=== PATIENT | male | born 1965 | race Caucasian/White ===

== ENCOUNTER 2019-06-22 14:48 | Outpatient (CLI) | payer OTHER, SELFPAY ==
[2019-06-22 15:36] LABS: Basophils Absolute Auto 0.1 K/mm3 (0.0-0.1); Basophils Percent Auto 0.8 % (0.2-1.2); Eosinophils Absolute Auto 0.3 K/mm3 (0-0.3); Eosinophils Percent Auto 3.6 % (0-4.4); Hematocrit 40.2 % (42.0-52.0); Immature Granulocyte Absolute 0.03 K/mm3 (0.00-0.031); Immature Granulocyte Percent A 0.4 % (0-0.5); Lymphocytes Absolute Auto 1.59 K/mm3 (0.9-3.2); Lymphocytes Percent Auto 21.8 % (18.3-44.2); Mean Corpuscular HGB Conc 34.8 g/dl (32-36); Mean Corpuscular Volume 97.6 fl (80-100); Mean Platelet Volume 10.2 fl (7.4-10.4); Monocytes Absolute Auto 0.7 K/mm3 (0.1-0.6); Monocytes Percent Auto 9.3 % (2.6-8.5); Neutrophils Absolute Auto 4.7 K/mm3 (1.3-6.7); Neutrophils Percent Auto 64.1 % (45.5-73.1); Platelet Count Result 239 k/mm3 (150-375); Red Blood Count 4.12 M/mm3 (4.6-6.20); Red Cell Distribution Width 13.2 % (11.5-14.5); White Blood Count 7.3 K/mm3 (4.5-10.0)
[2019-06-22 15:51] LABS: Add Urine Microscopic? YES; Appearance Urine Clear (Clear); Bilirubin Urine Negative (Negative); Blood Urine Negative (Negative); Color Urine Straw (Yellow); Glucose Urine UA Negative (Negative); Ketones Urine Negative (Negative); Leukocyte Esterase Ur Negative LEU/UL (NEGATIVE); Nitrate Urine Negative (Negative); Protein Urine 1+ mg/dL (Negative); RBC Urine 0-2 /hpf (0-2); Squamous Epithelial Cell Urine Rare /hpf (Few); Urobilinogen Urine Negative mg/dL (<2.0); WBC Urine 0-3 /hpf (0-3)
[2019-06-22 15:59] LABS: Alanine Aminotransferase 76 U/L (4-50); Albumin Level 4.9 g/dL (3.5-5.1); Alkaline Phosphatase 89 U/L (38-126); Aspartate Amino Transferase 152 U/L (17-59); Bilirubin,Total 0.7 mg/dL (0.2-1.3); Blood Urea Nitrogen 7 mg/dL (9-20); CRP 4.4 mg/dL (<1.0); Calcium 9.7 mg/dL (8.4-10.2); Carbon Dioxide 25 mmol/L (22-30); Chloride 102 mmol/L (98-107); Cholesterol 122 mg/dL (0-200); Estimated Glomerular Filt Rate > 60; Glucose 118 mg/dL (75-110); HDL Direct 57 mg/dL; Potassium 3.9 mmol/L (3.4-5.0); Sodium 139 mmol/L (137-145); Triglycerides 75 mg/dL (<150)
[2019-06-22 16:08] LABS: LDL Cholesterol Direct 46 mg/dL
[2019-06-22 16:19] LABS: Hemoglobin A1C 5.7 % (<5.7)
[2019-06-22 16:28] LABS: Thyroid Stimulating Hormone 0.948 uIU/mL (0.465-4.680)
[2019-06-26 04:39] LABS: Homocysteine 13.6 umol/L (<11.4)
[2019-06-26 11:58] LABS: Testosterone Total 463 ng/dL (250-1100)
== END 2019-06-22 14:49 | disposition home or self-care (01) ==
PROVIDERS: PCP Internal Medicine; Visit Provider Internal Medicine
DX: E78.2 Mixed hyperlipidemia (principal); I10 Essential (primary) hypertension; E11.9 Type 2 diabetes mellitus without complications; E34.9 Endocrine disorder, unspecified; Z79.899 Other long term (current) drug therapy
CPT/HCPCS: 36415; 80053; 80061; 81001; 83036; 83090; 84403; 84443; 85025; 86140

== ENCOUNTER 2019-07-27 10:46 | Outpatient (CLI) | payer OTHER, SELFPAY ==
--- NOTE | ~2019-07-27 | US_ITS ---
EXAMINATION: US right upper quadrant DATE: 07/27/2019 11:40 INDICATION: Hepatic steatosis. TECHNIQUE: Multiple grayscale and Doppler ultrasound images of the abdomen were obtained. COMPARISON: Abdomen ultrasound 02/17/2018 FINDINGS: The visualized portions of the head and body of the pancreas are normal. There is diffuse h epatic steatosis. No liver surface nodularity. There is normal flow in main portal vein. The gallblad roberto is normal in size. No gallstones or gallbladder wall thickening. There was no sonographic Groves sign. The common duct is normal and measures 3 mm. IMPRESSION: 1. Diffuse hepatic steatosis. Reviewed, dictated and finalized at location A.
--- NOTE | ~2019-07-27 | XR_ITS ---
EXAMINATION: XR knee RT 2V DATE: 07/27/2019 11:21 INDICATION: Primary osteoarthritis of right knee. TECHNIQUE: 2 views of right knee were obtained. COMPARISON: Right knee radiographs 03/30/2016 FINDINGS: There is varus angulation at the knee. No fracture. There is severe osteoarthritis of media l and patellofemoral compartments and mild osteoarthritis of lateral compartment. There is a small kn ee joint effusion. IMPRESSION: 1. Severe right knee osteoarthritis, worsened from 03/30/2016. 2. Small right knee joint effusion. Reviewed, dictated and finalized at location A.
--- NOTE | ~2019-07-27 | XR_ITS ---
EXAMINATION: XR knee LT 2V DATE: 07/27/2019 11:21 INDICATION: Left knee primary osteoarthritis. TECHNIQUE: 2 views of left knee were obtained. COMPARISON: Left knee radiographs 12/01/2015 FINDINGS: There is varus angulation at the knee. No fracture. There is severe osteoarthritis of the m edial and patellofemoral compartments and moderate osteoarthritis of lateral compartment. There is a moderate-sized knee joint effusion. IMPRESSION: 1. Severe left knee osteoarthritis. 2. Moderate-sized left knee joint effusion. Reviewed, dictated and finalized at location A.
[2019-07-27 12:08] LABS: Hemoglobin A1C 5.9 % (<5.7)
[2019-07-27 12:14] LABS: Alanine Aminotransferase 53 U/L (4-50); Albumin Level 4.7 g/dL (3.5-5.1); Alkaline Phosphatase 93 U/L (38-126); Aspartate Amino Transferase 63 U/L (17-59); Bilirubin,Total 0.3 mg/dL (0.2-1.3)
== END 2019-07-27 10:47 | disposition home or self-care (01) ==
PROVIDERS: PCP Internal Medicine; Visit Provider Internal Medicine
DX: R79.89 Other specified abnormal findings of blood chemistry (principal); E11.9 Type 2 diabetes mellitus without complications; M17.0 Bilateral primary osteoarthritis of knee; K76.0 Fatty (change of) liver, not elsewhere classified; M25.461 Effusion, right knee; M25.462 Effusion, left knee
CPT/HCPCS: 36415; 73560; 76705; 80076; 83036

== ENCOUNTER 2019-10-19 10:54 | Outpatient (CLI) | payer OTHER, SELFPAY ==
[2019-10-19 11:34] LABS: Add Urine Microscopic? YES; Appearance Urine Clear (Clear); Bilirubin Urine Negative (Negative); Blood Urine Negative (Negative); Color Urine Yellow (Yellow); Glucose Urine UA Negative (Negative); Ketones Urine Negative (Negative); Leukocyte Esterase Ur Negative LEU/UL (NEGATIVE); Mucus Urine Rare /lpf; Nitrate Urine Negative (Negative); Protein Urine Negative (Negative); Specific Grav Ur 1.012 (1.001-1.035); Urobilinogen Urine Negative mg/dL (<2.0); WBC Urine 0-3 /hpf (0-3)
[2019-10-19 11:46] LABS: Alanine Aminotransferase 48 U/L (4-50); Albumin Level 4.7 g/dL (3.5-5.1); Alkaline Phosphatase 72 U/L (38-126); Anion Gap 11 mmol/L (8-16); Aspartate Amino Transferase 56 U/L (17-59); Bilirubin,Total 0.7 mg/dL (0.2-1.3); Blood Urea Nitrogen 8 mg/dL (9-20); Calcium 9.6 mg/dL (8.4-10.2); Carbon Dioxide 26 mmol/L (22-30); Chloride 104 mmol/L (98-107); Cholesterol 109 mg/dL (0-200); Estimated Glomerular Filt Rate > 60; Glucose 102 mg/dL (75-110); HDL Direct 45 mg/dL; Potassium 3.9 mmol/L (3.4-5.0); Sodium 141 mmol/L (137-145); Triglycerides 74 mg/dL (<150)
[2019-10-19 11:56] LABS: LDL Cholesterol Direct 49 mg/dL
[2019-10-19 12:09] LABS: Creatinine Urine 105.5 mg/dL; MALB Creatinine Ratio 19.1 mg/g (0-30); Microalbumin Urine Random 20.1 mg/L (0-16.7)
[2019-10-19 12:16] LABS: Prostate Specific Antigen 0.7 ng/mL (< OR = 4.0); Thyroid Stimulating Hormone 0.646 uIU/mL (0.465-4.680)
[2019-10-25 06:45] LABS: GGT 174 U/L (3-85)
== END 2019-10-19 10:55 | disposition home or self-care (01) ==
PROVIDERS: PCP Internal Medicine; Visit Provider Internal Medicine
DX: E78.2 Mixed hyperlipidemia (principal); Z79.899 Other long term (current) drug therapy; K76.0 Fatty (change of) liver, not elsewhere classified; R79.89 Other specified abnormal findings of blood chemistry; E11.9 Type 2 diabetes mellitus without complications; I10 Essential (primary) hypertension; Z12.5 Encounter for screening for malignant neoplasm of prostate
CPT/HCPCS: 36415; 80053; 80061; 81001; 82043; 82977; 84153; 84443; G0103

== ENCOUNTER 2020-01-21 13:54 | Outpatient (CLI) | payer OTHER, SELFPAY ==
[2020-01-21 15:09] LABS: Alanine Aminotransferase 80 U/L (4-50); Albumin Level 4.7 g/dL (3.5-5.1); Alkaline Phosphatase 79 U/L (38-126); Anion Gap 13 mmol/L (8-16); Aspartate Amino Transferase 98 U/L (17-59); Bilirubin,Total 0.5 mg/dL (0.2-1.3); Blood Urea Nitrogen 9 mg/dL (9-20); Calcium 9.7 mg/dL (8.4-10.2); Carbon Dioxide 27 mmol/L (22-30); Chloride 101 mmol/L (98-107); Cholesterol 150 mg/dL (0-200); Estimated Glomerular Filt Rate > 60; Glucose 114 mg/dL (75-110); HDL Direct 75 mg/dL; Potassium 4.1 mmol/L (3.4-5.0); Sodium 141 mmol/L (137-145); Triglycerides 73 mg/dL (<150)
[2020-01-21 15:20] LABS: LDL Cholesterol Direct 59 mg/dL
[2020-01-21 17:01] LABS: Hemoglobin A1C 5.3 % (<5.7)
[2020-01-24 06:08] LABS: Vitamin D 1,25 (OH)2 Total 38 pg/mL (18-72); Vitamin D2 1,25 (OH)2 <8 pg/mL; Vitamin D3 1,25 (OH)2 38 pg/mL
[2020-01-24 09:38] LABS: Testosterone Total 334 ng/dL (250-1100)
== END 2020-01-21 13:55 | disposition home or self-care (01) ==
LOC: ANHLAB 13:58
PROVIDERS: PCP Internal Medicine; Visit Provider Internal Medicine
DX: E11.9 Type 2 diabetes mellitus without complications (principal); E29.1 Testicular hypofunction; E55.9 Vitamin D deficiency, unspecified; E78.2 Mixed hyperlipidemia; I10 Essential (primary) hypertension
CPT/HCPCS: 36415; 80053; 80061; 82652; 83036; 84403

== ENCOUNTER 2020-02-04 08:04 | Outpatient (CLI) | payer OTHER, SELFPAY ==
--- NOTE | ~2020-02-04 | US_ITS ---
EXAMINATION: US arterial duplex LE BI EXAM DATE: 02/04/2020 09:47 INDICATION: Abnormal JESSICA screen. Unable to compress right lower extremity. TECHNIQUE: Multiple grayscale and Doppler images of the lower extremity arteries were obtained (by a technologist who performed the scan) and subsequently reviewed. There is no prior study for comparis on. FINDINGS: Velocities below are reported in cm/second. Right common femoral artery 120, superficial femoral artery 125, profunda 135, popliteals 94, posteri or tibial 71, dorsalis pedis 48. Only minimal scattered arterial sclerotic disease is identified. Nor mal triphasic waveforms. Left common femoral artery 231, superficial femoral artery 166, profunda 103, popliteal 113, posterio r tibial 102, dorsalis pedis 120. Minimal scattered arteriosclerotic disease with normal triphasic Do ppler waveforms. IMPRESSION: Minimal scattered bilateral lower extremity arterial sclerotic disease with normal tripha sic waveforms. Reviewed, dictated and finalized at location B. 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
== END 2020-02-04 08:05 | disposition home or self-care (01) ==
LOC: ANHIMG 08:09
PROVIDERS: PCP Internal Medicine; Visit Provider Internal Medicine
DX: I25.10 Atherosclerotic heart disease of native coronary artery without angina pectoris (principal)
CPT/HCPCS: 93925

== ENCOUNTER 2020-06-20 13:15 | Outpatient (CLI) | payer OTHER, SELFPAY ==
[2020-06-20 13:52] LABS: Basophils Absolute Auto 0.1 K/mm3 (0.0-0.1); Basophils Percent Auto 0.5 % (0.2-1.2); Eosinophils Absolute Auto 0.2 K/mm3 (0-0.3); Hemoglobin 13.3 g/dL (14.0-18.0); Immature Granulocyte Absolute 0.03 K/mm3 (0.00-0.031); Immature Granulocyte Percent A 0.3 % (0-0.5); Lymphocytes Absolute Auto 1.78 K/mm3 (0.9-3.2); Lymphocytes Percent Auto 18.4 % (18.3-44.2); Mean Corpuscular HGB Conc 34.1 g/dl (32-36); Mean Corpuscular Hemoglobin 32.7 pg (26-34); Mean Corpuscular Volume 95.8 fl (80-100); Mean Platelet Volume 10.4 fl (7.4-10.4); Monocytes Absolute Auto 0.6 K/mm3 (0.1-0.6); Monocytes Percent Auto 6.4 % (2.6-8.5); Neutrophils Percent Auto 72.4 % (45.5-73.1); Platelet Count Result 177 k/mm3 (150-375); Red Blood Count 4.07 M/mm3 (4.6-6.20); Red Cell Distribution Width 13.9 % (11.5-14.5); White Blood Count 9.7 K/mm3 (4.5-10.0)
[2020-06-20 14:04] LABS: Alanine Aminotransferase 30 U/L (4-50); Albumin Level 4.7 g/dL (3.5-5.1); Alkaline Phosphatase 69 U/L (38-126); Aspartate Amino Transferase 41 U/L (17-59); Bilirubin,Total 0.6 mg/dL (0.2-1.3); Cholesterol 112 mg/dL (0-200); HDL Direct 58 mg/dL; Triglycerides 78 mg/dL (<150)
[2020-06-20 14:16] LABS: LDL Cholesterol Direct 44 mg/dL
[2020-06-20 14:34] LABS: Thyroid Stimulating Hormone 0.782 uIU/mL (0.465-4.680)
[2020-06-20 14:37] LABS: Hemoglobin A1C 5.6 % (<5.7)
[2020-06-20 16:00] LABS: Free T4 Free Thyroxine 0.82 ng/mL (0.78-2.19)
[2020-06-20 18:08] LABS: Microalbumin Urine Random < 6.0 mg/L (0-16.7)
[2020-06-25 07:28] LABS: GGT 132 U/L (3-85)
== END 2020-06-20 13:16 | disposition home or self-care (01) ==
LOC: ANHLAB 13:17
PROVIDERS: PCP Internal Medicine; Visit Provider Internal Medicine
DX: K76.0 Fatty (change of) liver, not elsewhere classified (principal); E11.9 Type 2 diabetes mellitus without complications; E78.2 Mixed hyperlipidemia; I10 Essential (primary) hypertension; Z79.899 Other long term (current) drug therapy
CPT/HCPCS: 36415; 80061; 80076; 82043; 82977; 83036; 84439; 84443; 85025

== ENCOUNTER 2020-10-31 12:53 | Outpatient (CLI) | payer OTHER, SELFPAY ==
[2020-10-31 13:28] LABS: Basophils Percent Auto 0.6 % (0.2-1.2); Eosinophils Absolute Auto 0.2 K/mm3 (0-0.3); Eosinophils Percent Auto 3.4 % (0-4.4); Hematocrit 39.4 % (42.0-52.0); Hemoglobin 13.4 g/dL (14.0-18.0); Immature Granulocyte Absolute 0.02 K/mm3 (0.00-0.031); Immature Granulocyte Percent A 0.3 % (0-0.5); Lymphocytes Absolute Auto 2.39 K/mm3 (0.9-3.2); Lymphocytes Percent Auto 37.2 % (18.3-44.2); Mean Corpuscular Hemoglobin 32.8 pg (26-34); Mean Corpuscular Volume 96.6 fl (80-100); Mean Platelet Volume 10.1 fl (7.4-10.4); Monocytes Absolute Auto 0.7 K/mm3 (0.1-0.6); Monocytes Percent Auto 10.1 % (2.6-8.5); Neutrophils Absolute Auto 3.1 K/mm3 (1.3-6.7); Neutrophils Percent Auto 48.4 % (45.5-73.1); Platelet Count Result 174 k/mm3 (150-375); Red Blood Count 4.08 M/mm3 (4.6-6.20); Red Cell Distribution Width 14.2 % (11.5-14.5); White Blood Count 6.4 K/mm3 (4.5-10.0)
[2020-10-31 13:47] LABS: Alanine Aminotransferase 49 U/L (4-50); Albumin Level 4.9 g/dL (3.5-5.1); Alkaline Phosphatase 81 U/L (38-126); Anion Gap 10 mmol/L (8-16); Aspartate Amino Transferase 61 U/L (17-59); Bilirubin,Total 0.5 mg/dL (0.2-1.3); Blood Urea Nitrogen 11 mg/dL (9-20); Calcium 9.4 mg/dL (8.4-10.2); Carbon Dioxide 26 mmol/L (22-30); Chloride 103 mmol/L (98-107); Estimated Glomerular Filt Rate > 60; Glucose 103 mg/dL (65-110); Potassium 3.7 mmol/L (3.4-5.0); Sodium 139 mmol/L (137-145); Uric Acid 4.6 mg/dL (3.5-8.5)
[2020-10-31 14:09] LABS: Free T4 Free Thyroxine 0.86 ng/mL (0.78-2.19)
[2020-10-31 14:17] LABS: Prostate Specific Antigen 0.6 ng/mL (< OR = 4.0)
[2020-11-03 13:21] LABS: Cholesterol 115 mg/dL (0-200)
[2020-11-03 13:24] LABS: HDL Direct 58 mg/dL; Triglycerides 102 mg/dL (<150)
[2020-11-03 13:27] LABS: LDL Cholesterol Direct 48 mg/dL
[2020-11-04 12:15] LABS: Testosterone Total 238 ng/dL (250-1100)
[2020-11-05 11:32] LABS: Vitamin D 1,25 (OH)2 Total 30 pg/mL (18-72); Vitamin D2 1,25 (OH)2 <8 pg/mL; Vitamin D3 1,25 (OH)2 30 pg/mL
[2020-11-05 21:22] LABS: Homocysteine 13.1 umol/L (<11.4)
== END 2020-10-31 12:54 | disposition home or self-care (01) ==
PROVIDERS: PCP Internal Medicine; Visit Provider Internal Medicine
DX: E55.9 Vitamin D deficiency, unspecified (principal); I10 Essential (primary) hypertension; Z79.899 Other long term (current) drug therapy; R79.89 Other specified abnormal findings of blood chemistry; E29.1 Testicular hypofunction; M10.9 Gout, unspecified; Z12.5 Encounter for screening for malignant neoplasm of prostate
CPT/HCPCS: 36415; 80053; 80061; 82652; 83090; 84153; 84403; 84439; 84443; 84550; 85025; G0103

== ENCOUNTER 2021-03-06 14:02 | Outpatient (CLI) | payer OTHER, SELFPAY ==
[2021-03-06 14:47] LABS: Hemoglobin A1C 5.5 % (<5.7)
[2021-03-06 14:49] LABS: Alanine Aminotransferase 70 U/L (4-50); Alkaline Phosphatase 74 U/L (38-126); Anion Gap 7 mmol/L (8-16); Aspartate Amino Transferase 81 U/L (17-59); Bilirubin,Total 0.6 mg/dL (0.2-1.3); Blood Urea Nitrogen 9 mg/dL (9-20); Calcium 9.9 mg/dL (8.4-10.2); Carbon Dioxide 28 mmol/L (22-30); Chloride 107 mmol/L (98-107); Cholesterol 123 mg/dL (0-200); Estimated Glomerular Filt Rate > 60; Glucose 107 mg/dL (65-110); HDL Direct 57 mg/dL; Sodium 142 mmol/L (137-145); Triglycerides 82 mg/dL (<150); Uric Acid 5.1 mg/dL (3.5-8.5)
[2021-03-06 15:00] LABS: LDL Cholesterol Direct 47 mg/dL
[2021-03-06 15:19] LABS: Thyroid Stimulating Hormone 0.536 uIU/mL (0.465-4.680)
[2021-03-06 16:57] LABS: Free T4 Free Thyroxine 0.74 ng/mL (0.78-2.19); Vitamin D 25 Hydroxy 35.3 ng/mL
[2021-03-11 10:42] LABS: Testosterone Total 402 ng/dL (250-1100)
== END 2021-03-06 14:03 | disposition home or self-care (01) ==
LOC: ANHLAB 14:05
PROVIDERS: PCP Internal Medicine; Visit Provider Internal Medicine
DX: E29.1 Testicular hypofunction (principal); M10.9 Gout, unspecified; Z51.81 Encounter for therapeutic drug level monitoring; Z79.899 Other long term (current) drug therapy; I10 Essential (primary) hypertension; E55.9 Vitamin D deficiency, unspecified
CPT/HCPCS: 36415; 80053; 80061; 82306; 83036; 84403; 84439; 84443; 84550

== ENCOUNTER 2021-04-24 12:40 | Outpatient (CLI) | payer OTHER, SELFPAY ==
[2021-04-28 04:23] LABS: Thyroglobulin 11.8 ng/mL (2.8-40.9); Thyroglobulin Antibodies <1 IU/mL (<=1); Thyroid Peroxidase Antibodies <1 IU/mL (<9)
[2021-04-28 14:29] LABS: Triiodothyronine T3 Free 3.5 pg/mL (2.3-4.2)
== END 2021-04-24 12:41 | disposition home or self-care (01) ==
LOC: ANHLAB 12:43
PROVIDERS: PCP Internal Medicine; Visit Provider Internal Medicine
DX: R79.89 Other specified abnormal findings of blood chemistry (principal)
CPT/HCPCS: 36415; 84432; 84481; 86376; 86800

== ENCOUNTER 2021-09-11 14:07 | Outpatient (CLI) | payer OTHER, SELFPAY ==
[2021-09-11 14:32] LABS: Basophils Absolute Auto 0.1 K/mm3 (0.0-0.1); Basophils Percent Auto 0.9 % (0.2-1.2); Eosinophils Absolute Auto 0.3 K/mm3 (0-0.3); Eosinophils Percent Auto 3.8 % (0-4.4); Hematocrit 44.9 % (42.0-52.0); Hemoglobin 14.6 g/dL (14.0-18.0); Immature Granulocyte Absolute 0.02 K/mm3 (0.00-0.031); Immature Granulocyte Percent A 0.3 % (0-0.5); Lymphocytes Absolute Auto 2.41 K/mm3 (0.9-3.2); Lymphocytes Percent Auto 30.2 % (18.3-44.2); Mean Corpuscular HGB Conc 32.5 g/dl (32-36); Mean Corpuscular Hemoglobin 32.4 pg (26-34); Mean Corpuscular Volume 99.6 fl (80-100); Mean Platelet Volume 10.3 fl (7.4-10.4); Monocytes Absolute Auto 0.6 K/mm3 (0.1-0.6); Monocytes Percent Auto 7.3 % (2.6-8.5); Neutrophils Absolute Auto 4.6 K/mm3 (1.3-6.7); Neutrophils Percent Auto 57.5 % (45.5-73.1); Platelet Count Result 243 k/mm3 (150-375); Red Blood Count 4.51 M/mm3 (4.6-6.20); Red Cell Distribution Width 14.6 % (11.5-14.5)
[2021-09-11 14:47] LABS: Alanine Aminotransferase 85 U/L (6-50); Albumin Level 4.7 g/dL (3.5-5.1); Alkaline Phosphatase 75 U/L (38-126); Anion Gap 12 mmol/L (8-16); Aspartate Amino Transferase 92 U/L (17-59); Bilirubin,Total 0.6 mg/dL (0.2-1.3); Blood Urea Nitrogen 8 mg/dL (9-20); Calcium 9.6 mg/dL (8.4-10.2); Carbon Dioxide 25 mmol/L (22-30); Chloride 103 mmol/L (98-107); Cholesterol 103 mg/dL (0-200); Estimated Glomerular Filt Rate > 60; Glucose 94 mg/dL (65-110); HDL Direct 51 mg/dL; Potassium 3.9 mmol/L (3.4-5.0); Sodium 140 mmol/L (137-145); Triglycerides 67 mg/dL (<150)
[2021-09-11 14:58] LABS: LDL Cholesterol Direct < 30 mg/dL
[2021-09-11 15:07] LABS: Hemoglobin A1C 5.3 % (<5.7)
[2021-09-11 15:17] LABS: Prostate Specific Antigen 0.8 ng/mL (< OR = 4.0); Thyroid Stimulating Hormone 0.328 uIU/mL (0.465-4.680)
[2021-09-12 00:08] LABS: Free T4 Free Thyroxine 0.94 ng/mL (0.78-2.19); Vitamin D 25 Hydroxy 57.5 ng/mL
[2021-09-14 20:14] LABS: GGT 143 U/L (3-85)
[2021-09-16 12:17] LABS: Testosterone Total 335 ng/dL (250-1100)
== END 2021-09-11 14:08 | disposition home or self-care (01) ==
LOC: ANHLAB 14:09
PROVIDERS: PCP Internal Medicine; Visit Provider Internal Medicine
DX: E11.9 Type 2 diabetes mellitus without complications (principal); R79.89 Other specified abnormal findings of blood chemistry; Z12.5 Encounter for screening for malignant neoplasm of prostate; I10 Essential (primary) hypertension; E29.1 Testicular hypofunction; E55.9 Vitamin D deficiency, unspecified; K76.0 Fatty (change of) liver, not elsewhere classified; R94.5 Abnormal results of liver function studies
CPT/HCPCS: 36415; 80053; 80061; 82306; 82977; 83036; 84153; 84403; 84439; 84443; 85025; G0103

== ENCOUNTER 2022-01-15 09:14 | Outpatient (CLI) | payer OTHER, SELFPAY ==
--- NOTE | ~2022-01-15 | US_ITS ---
US abdomen limited INDICATION: Abnormal liver function tests. PROCEDURE: Realtime right upper abdominal ultrasound. COMPARISON: No prior studies for comparison. FINDINGS: The pancreas is normal without focal mass or pancreatic ductal dilation. Liver echotexture is slightly increased, consistent with fatty infiltration. No discrete hepatic masses. There is nor mal directional flow in the portal vein. The gallbladder is normal without stones, gallbladder wall thickening or pericholecystic fluid. Comm on bile duct measures 4 mm. No sonographic Groves's sign. IMPRESSION: 1: Hepatic steatosis. Reviewed, dictated and finalized at location A. 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
[2022-01-15 11:03] LABS: Alanine Aminotransferase 50 U/L (6-50); Albumin Level 4.5 g/dL (3.5-5.1); Alkaline Phosphatase 75 U/L (38-126); Anion Gap 7 mmol/L (8-16); Aspartate Amino Transferase 64 U/L (17-59); Bilirubin,Total 0.3 mg/dL (0.2-1.3); Blood Urea Nitrogen 10 mg/dL (9-20); Calcium 9.1 mg/dL (8.4-10.2); Carbon Dioxide 27 mmol/L (22-30); Chloride 106 mmol/L (98-107); Cholesterol 104 mg/dL (0-200); Estimated Glomerular Filt Rate > 60; Glucose 104 mg/dL (65-110); HDL Direct 46 mg/dL; Potassium 3.9 mmol/L (3.4-5.0); Sodium 140 mmol/L (137-145); Triglycerides 70 mg/dL (<150)
[2022-01-15 11:14] LABS: LDL Cholesterol Direct 40 mg/dL
[2022-01-15 11:18] LABS: Appearance Urine Clear (Clear); Bilirubin Urine Negative (Negative); Blood Urine Negative (Negative); Color Urine Yellow (Yellow); Glucose Urine UA Negative (Negative); Ketones Urine Negative (Negative); Leukocyte Esterase Ur Negative LEU/UL (Negative); Nitrate Urine Negative (Negative); Protein Urine Negative (Negative); Specific Grav Ur 1.015 (1.001-1.035); Urobilinogen Urine 0.2 mg/dL (<2.0)
[2022-01-15 11:23] LABS: Hemoglobin A1C 5.7 % (<5.7)
[2022-01-15 11:42] LABS: Add Urine Microscopic? NO
[2022-01-20 15:18] LABS: Testosterone Total 356 ng/dL (250-1100)
== END 2022-01-15 09:15 | disposition home or self-care (01) ==
PROVIDERS: PCP Internal Medicine; Visit Provider Internal Medicine
DX: K76.0 Fatty (change of) liver, not elsewhere classified (principal); R94.5 Abnormal results of liver function studies; I10 Essential (primary) hypertension; E11.9 Type 2 diabetes mellitus without complications; E29.1 Testicular hypofunction; Z79.899 Other long term (current) drug therapy
CPT/HCPCS: 36415; 76705; 80053; 80061; 81003; 83036; 84403

== ENCOUNTER 2022-05-21 08:03 | Outpatient (CLI) | payer OTHER, SELFPAY ==
--- NOTE | ~2022-05-21 | US_ITS ---
US arterial ankle brachial ind INDICATION: Decreased pulses. His coloring. Loss of hair with thickening of the toenails. TECHNIQUE: Segmental pressures and plethysmographic and Doppler waveforms of the brachial and lower e xtremity arteries were obtained. COMPARISON: None. FINDINGS: Right and left brachial artery pressures of 140 mm Hg and 141 mm Hg, respectively, are concordant (no rmal difference <= 30 mmHg). The right ankle-brachial index (JESSICA) is 1.22 (normal >= 0.9-1.0). The right great toe-brachial index (TBI) is 0.69 (normal >= 0.60). The left JESSICA is 1.26. The left TBI is 0.69. IMPRESSION: 1. Normal bilateral ankle and toe brachial indices. Reviewed, dictated and finalized at location B.
== END 2022-05-21 08:04 | disposition home or self-care (01) ==
PROVIDERS: PCP Internal Medicine; Visit Provider Internal Medicine
DX: R68.89 Other general symptoms and signs (principal)
CPT/HCPCS: 93922

== ENCOUNTER 2022-05-28 11:44 | Outpatient (CLI) | payer OTHER, SELFPAY ==
--- NOTE | ~2022-05-28 | XR_ITS ---
XR knee RT 3V 05/28/2022 12:11 Indication: Right knee pain Procedure: 3 views right knee Comparison: 07/27/2019 Findings: There is moderate-severe tricompartment osteoarthritis of the right knee. No fracture or tr aumatic malalignment. There is vascular calcification. No significant joint effusion. Impression: 1: Moderate-Severe tricompartment osteoarthritis of the right knee. Reviewed, dictated and finalized at location A. Impression: 1: Moderate-Severe tricompartment osteoarthritis of the right knee.
--- NOTE | ~2022-05-28 | XR_ITS ---
XR knee LT 3V 05/28/2022 12:11 Indication: Osteoarthritis of the knee. Procedure: 3 views left knee Comparison: 07/27/2019 Findings: There is severe tricompartment osteoarthritis of the left knee. No fracture, subluxation or dislocation. There is a joint effusion. There is atherosclerosis. Impression: 1: Severe tricompartment osteoarthritis of the left knee. Reviewed, dictated and finalized at location A. Impression: 1: Severe tricompartment osteoarthritis of the left knee.
[2022-05-28 12:27] LABS: Alanine Aminotransferase 49 U/L (6-50); Albumin Level 4.8 g/dL (3.5-5.1); Alkaline Phosphatase 82 U/L (38-126); Anion Gap 9 mmol/L (8-16); Aspartate Amino Transferase 62 U/L (17-59); Bilirubin,Total 0.6 mg/dL (0.2-1.3); Blood Urea Nitrogen 11 mg/dL (9-20); Calcium 9.4 mg/dL (8.4-10.2); Carbon Dioxide 26 mmol/L (22-30); Chloride 107 mmol/L (98-107); Estimated Glomerular Filt Rate > 60; Glucose 91 mg/dL (65-110); Potassium 4.1 mmol/L (3.4-5.0); Sodium 142 mmol/L (137-145); Uric Acid 4.1 mg/dL (3.5-8.5)
[2022-05-28 12:29] LABS: Hemoglobin A1C 5.3 % (<5.7)
[2022-06-02 11:53] LABS: Testosterone Total 220 ng/dL (250-1100)
== END 2022-05-28 11:45 | disposition home or self-care (01) ==
LOC: ANHLAB 11:46
PROVIDERS: PCP Internal Medicine; Visit Provider Internal Medicine
DX: E29.1 Testicular hypofunction (principal); I10 Essential (primary) hypertension; E11.9 Type 2 diabetes mellitus without complications; M10.9 Gout, unspecified; M17.0 Bilateral primary osteoarthritis of knee
CPT/HCPCS: 36415; 73562; 80053; 83036; 84403; 84550

== ENCOUNTER 2022-09-10 12:02 | Outpatient (CLI) | payer OTHER, SELFPAY ==
[2022-09-10 12:59] LABS: Basophils Percent Auto 0.8 % (0.2-1.2); Eosinophils Absolute Auto 0.2 K/mm3 (0-0.3); Eosinophils Percent Auto 4.3 % (0-4.4); Hematocrit 42.6 % (42.0-52.0); Hemoglobin 14.4 g/dL (14.0-18.0); Immature Granulocyte Absolute 0.01 K/mm3 (0.00-0.031); Immature Granulocyte Percent A 0.2 % (0-0.5); Lymphocytes Absolute Auto 2.52 K/mm3 (0.9-3.2); Lymphocytes Percent Auto 47.4 % (18.3-44.2); Mean Corpuscular HGB Conc 33.8 g/dl (32-36); Mean Corpuscular Hemoglobin 33.2 pg (26-34); Mean Corpuscular Volume 98.2 fl (80-100); Mean Platelet Volume 10.3 fl (7.4-10.4); Monocytes Absolute Auto 0.5 K/mm3 (0.1-0.6); Neutrophils Percent Auto 38.3 % (45.5-73.1); Platelet Count Result 225 k/mm3 (150-375); Red Blood Count 4.34 M/mm3 (4.6-6.20); White Blood Count 5.3 K/mm3 (4.5-10.0)
[2022-09-10 13:09] LABS: Alanine Aminotransferase 48 U/L (6-50); Albumin Level 4.7 g/dL (3.5-5.1); Alkaline Phosphatase 71 U/L (38-126); Anion Gap 11 mmol/L (8-16); Aspartate Amino Transferase 65 U/L (17-59); Bilirubin,Total 0.6 mg/dL (0.2-1.3); Blood Urea Nitrogen 7 mg/dL (9-20); Calcium 9.3 mg/dL (8.4-10.2); Carbon Dioxide 24 mmol/L (22-30); Chloride 103 mmol/L (98-107); Cholesterol 111 mg/dL (0-200); Estimated Glomerular Filt Rate > 60; Glucose 98 mg/dL (65-110); HDL Direct 63 mg/dL; Potassium 3.7 mmol/L (3.4-5.0); Sodium 138 mmol/L (137-145); Triglycerides 44 mg/dL (<150)
[2022-09-10 13:12] LABS: Hemoglobin A1C 5.5 % (<5.7)
[2022-09-10 13:22] LABS: Appearance Urine Clear (Clear); Bacteria Urine None Seen /hpf; Bilirubin Urine Negative (Negative); Blood Urine Negative (Negative); Color Urine Yellow (Yellow); Glucose Urine UA Negative (Negative); Ketones Urine Negative (Negative); LDL Cholesterol Direct 33 mg/dL; Leukocyte Esterase Ur Negative LEU/UL (NEGATIVE); Nitrate Urine Negative (Negative); Non Pathogenic Casts 0-2; Protein Urine Trace mg/dL (Negative); RBC Urine 0-2 /hpf (0-2); Specific Grav Ur 1.012 (1.001-1.035); Squamous Epithelial Cell Urine None seen /hpf (Few); WBC Urine 0-5 /hpf (0-3); pH Urine 6.5 (5.0-9.0)
[2022-09-10 13:23] LABS: Add Urine Microscopic? YES
[2022-09-10 13:40] LABS: Thyroid Stimulating Hormone 0.414 uIU/mL (0.465-4.680)
[2022-09-10 13:52] LABS: Free T4 Free Thyroxine 0.81 ng/mL (0.78-2.19); Vitamin D 25 Hydroxy 52.6 ng/mL
[2022-09-14 11:58] LABS: Testosterone Total 575 ng/dL (250-1100)
== END 2022-09-10 12:03 | disposition home or self-care (01) ==
LOC: ANHLAB 12:03
PROVIDERS: PCP Internal Medicine; Visit Provider Internal Medicine
DX: E29.1 Testicular hypofunction (principal); R79.89 Other specified abnormal findings of blood chemistry; R94.5 Abnormal results of liver function studies; E11.9 Type 2 diabetes mellitus without complications; Z79.899 Other long term (current) drug therapy
CPT/HCPCS: 36415; 80053; 80061; 81001; 82306; 83036; 84153; 84403; 84439; 84443; 85025

== ENCOUNTER 2023-01-24 11:14 | Outpatient (CLI) | payer OTHER, SELFPAY ==
[2023-01-24 11:44] LABS: Alanine Aminotransferase 39 U/L (6-50); Albumin Level 4.2 g/dL (3.5-5.1); Alkaline Phosphatase 80 U/L (38-126); Anion Gap 8 mmol/L (8-16); Aspartate Amino Transferase 45 U/L (17-59); Bilirubin,Total 0.4 mg/dL (0.2-1.3); Blood Urea Nitrogen 6 mg/dL (9-20); Calcium 9.1 mg/dL (8.4-10.2); Carbon Dioxide 29 mmol/L (22-30); Chloride 101 mmol/L (98-107); Cholesterol 118 mg/dL (0-200); Estimated Glomerular Filt Rate > 60; Glucose 95 mg/dL (65-110); HDL Direct 51 mg/dL; Potassium 3.8 mmol/L (3.4-5.0); Sodium 138 mmol/L (137-145); Triglycerides 72 mg/dL (<150); Uric Acid 3.7 mg/dL (3.5-8.5)
[2023-01-24 11:54] LABS: LDL Cholesterol Direct 59 mg/dL
[2023-01-24 12:31] LABS: Free T4 Free Thyroxine 0.95 ng/mL (0.78-2.19); Vitamin D 25 Hydroxy 50.1 ng/mL
[2023-01-24 12:57] LABS: Hemoglobin A1C 5.6 % (<5.7)
== END 2023-01-24 11:15 | disposition home or self-care (01) ==
LOC: ANHLAB 11:16
PROVIDERS: PCP Internal Medicine; Visit Provider Internal Medicine
DX: R79.89 Other specified abnormal findings of blood chemistry (principal); M10.9 Gout, unspecified; E78.5 Hyperlipidemia, unspecified; E55.9 Vitamin D deficiency, unspecified; I10 Essential (primary) hypertension; E11.9 Type 2 diabetes mellitus without complications
CPT/HCPCS: 36415; 80053; 80061; 82306; 83036; 84439; 84443; 84550

== ENCOUNTER 2023-03-11 08:49 | Outpatient (CLI) | payer BC, SELFPAY ==
--- NOTE | ~2023-03-11 | US_ITS ---
Limited Abdominal Sonogram: Real-time sonographic imaging of the right upper quadrant was performed. Clinical History: Abnormal liver function test Findings: The liver appears echogenic, with no evidence of mass lesion or bile duct dilatation. Main portal vein demonstrates normal direction of flow. The gallbladder is well distended, and appears no rmal with no evidence of gallstone or wall thickening. The common bile duct measures 3 mm. The visua lized pancreas, aorta, and IVC are unremarkable. Impression: Diffuse fatty infiltration of the liver. Reviewed, dictated and finalized at location M. RAL NEUROLOGIST Impression: Diffuse fatty infiltration of the liver.
== END 2023-03-11 08:50 | disposition home or self-care (01) ==
PROVIDERS: PCP Internal Medicine; Visit Provider Internal Medicine
DX: R94.5 Abnormal results of liver function studies (principal); K76.0 Fatty (change of) liver, not elsewhere classified
CPT/HCPCS: 76705

== ENCOUNTER 2023-06-17 13:11 | Outpatient (CLI) | payer BC, SELFPAY ==
[2023-06-17 13:59] LABS: Basophils Absolute Auto 0.1 K/mm3 (0.0-0.1); Basophils Percent Auto 1.1 % (0.2-1.2); Eosinophils Absolute Auto 0.3 K/mm3 (0-0.3); Eosinophils Percent Auto 4.9 % (0-4.4); Hematocrit 42.6 % (42.0-52.0); Hemoglobin 14.3 g/dL (14.0-18.0); Immature Granulocyte Absolute 0.02 K/mm3 (0.00-0.031); Immature Granulocyte Percent A 0.4 % (0-0.5); Lymphocytes Absolute Auto 2.54 K/mm3 (0.9-3.2); Lymphocytes Percent Auto 48.2 % (18.3-44.2); Mean Corpuscular HGB Conc 33.6 g/dl (32-36); Mean Corpuscular Hemoglobin 32.5 pg (26-34); Mean Corpuscular Volume 96.8 fl (80-100); Mean Platelet Volume 10.4 fl (7.4-10.4); Monocytes Absolute Auto 0.5 K/mm3 (0.1-0.6); Monocytes Percent Auto 9.1 % (2.6-8.5); Neutrophils Absolute Auto 1.9 K/mm3 (1.3-6.7); Neutrophils Percent Auto 36.3 % (45.5-73.1); Platelet Count Result 232 k/mm3 (150-375); Red Cell Distribution Width 14.6 % (11.5-14.5); White Blood Count 5.3 K/mm3 (4.5-10.0)
[2023-06-17 14:21] LABS: Hemoglobin A1C 5.3 % (<5.7)
[2023-06-17 14:37] LABS: Free T4 Free Thyroxine 0.79 ng/mL (0.78-2.19); Vitamin D 25 Hydroxy 58.8 ng/mL
[2023-06-17 16:40] LABS: Alanine Aminotransferase 52 U/L (6-50); Albumin Level 4.7 g/dL (3.5-5.1); Alkaline Phosphatase 74 U/L (38-126); Anion Gap 10 mmol/L (4-12); Aspartate Amino Transferase 69 U/L (17-59); Bilirubin,Total 0.6 mg/dL (0.2-1.3); Blood Urea Nitrogen 6 mg/dL (9-20); Calcium 9.7 mg/dL (8.4-10.2); Carbon Dioxide 24 mmol/L (22-30); Chloride 109 mmol/L (98-107); Cholesterol 112 mg/dL (0-200); Estimated Glomerular Filt Rate > 60; Glucose 93 mg/dL (65-110); HDL Direct 50 mg/dL; Potassium 3.8 mmol/L (3.4-5.0); Sodium 143 mmol/L (137-145); Triglycerides 80 mg/dL (<150)
[2023-06-17 16:51] LABS: LDL Cholesterol Direct 58 mg/dL
[2023-06-17 18:05] LABS: Folic Acid > 20.0 ng/mL (2.76->20); Vitamin B12 > 1000.0 pg/mL (239-931)
[2023-06-20 14:18] LABS: Testosterone Total 214 ng/dL (250-1100)
== END 2023-06-17 13:12 | disposition home or self-care (01) ==
PROVIDERS: PCP Internal Medicine; Visit Provider Internal Medicine
DX: E55.9 Vitamin D deficiency, unspecified (principal); R79.89 Other specified abnormal findings of blood chemistry; E29.1 Testicular hypofunction; E11.9 Type 2 diabetes mellitus without complications; I10 Essential (primary) hypertension
CPT/HCPCS: 36415; 80053; 80061; 82306; 82607; 82746; 83036; 84403; 84439; 84443; 85025

== ENCOUNTER 2023-09-18 13:03 | Emergency (ER) | payer BC, SELFPAY ==
[2023-09-18 13:07] VITALS: BP 151/78; PULSE 71; RESP 16; TEMP 36.4; O2SAT 98
[2023-09-18 16:02] VITALS: BP 133/75; PULSE 61; RESP 17; O2SAT 97
--- NOTE | 2023-09-18 16:12 | ED.GENADULT ---
HPI - General Adult General Chief complaint: Unspecified Stated complaint: sciatica pain Time Seen by Provider: 09/18/23 16:01 History of Present Illness HPI narrative: This is a 58-year-old male with a past medical history significant for significant osteo arthropathy and gout. Today patient presents to the ED with right-sided back and right hip pain. He describes the pain as a stabbing sensation in his right buttock that radiates down to his leg and into the knee. States that it is worse with movement and sitting straight up. Denies any trauma or injuries. He states he feels like this could be sciatica pain. Denies any fever, chills, dysuria, hematuria, difficulty with urination or defecation, saddle anesthesias, continence issues. No trauma or other recent illnesses. Was otherwise in his normal state of health. Has been trying some topical therapy with Salonpas without much improvement. Has not tried any oral medications yet. Related Data Home Medications Medication Instructions Recorded Confirmed ezetimibe 10 mg tablet (Zetia) 10 mg PO DAILY 06/29/19 07/15/23 omega-3 fatty acids 1,000 mg 1,000 mg PO BID 06/29/19 07/15/23 capsule (Fish Oil Concentrate) glucosam 750 mg-chondroi 100 tablet PO 02/13/20 07/15/23 mg-hyalur 1.65 mg-CF borate 108 mg tablet (VEASYT) cholecalciferol (vitamin D3) 25 25 mcg PO DAILY 09/18/21 07/15/23 mcg (1,000 unit) capsule Allergies Allergy/AdvReac Type Severity Reaction Status Date / Time Penicillins Allergy Unknown Unknown Verified 09/18/23 16:02 Review of Systems Review of Systems: As reviewed above in the [facility] Past Medical History Medical History Benign essential hypertension Bilateral foot pain BMI 27.0-27.9,adult BMI 28.0-28.9,adult BMI 29.0-29.9,adult BMI 30.0-30.9,adult BMI 32.0-32.9,adult Degenerative arthritis of knee, bilateral DJD (degenerative joint disease), multiple sites DM type 2 (diabetes mellitus, type 2) Elevated homocysteine Elevated LFTs Encounter for preventive health examination Encounter for routine adult health examination without abnormal findings Encounter for special screening examination for neoplasm of prostate Fatty liver Foreign body in left foot Gout Hearing loss Hx of colonic polyps Hyperlipidemia Hypogonadism in male IGT (impaired glucose tolerance) Left knee pain On intermediate drug therapy Primary osteoarthritis of both knees PVD (peripheral vascular disease) Vitamin D deficiency Family History Family History Father Family history of diabetes mellitus in first degree relative Family history of heart disease in male family member before age 55 Grandparent Acute myocardial infarction Social History Social History Smoking status: Former smoker Smoking end date: 02/08/00 Alcohol intake: current Lack of Transportation: No Lack of Food: Never True Current Housing: I Have Housing Concerned About Future Housing: No Difficulty Paying Gas/Electric Bills: No Difficulty Paying for Meds: No Currently Unemployed: No Education: High School Diploma/GED Difficulty w/ Childcare or Family Care: No Living arrangements: with family Occupation/Education: occupation Gender identity (if verbalized by the patient): Male Exam Narrative: GENERAL: [Well-appearing, well-nourished, and in no acute distress.] HEAD: [Normocephalic, atraumatic.] EYES: [PERRLA and EOMI.] ENT: Nares clear, no rhinorrhea or epistaxis. Mucous membranes moist. NECK: Supple. CHEST: [Clear to auscultation. No respiratory distress.] HEART: [Regular rate and rhythm]. No murmur heard. [Normal peripheral pulses.] ABDOMEN: [Soft, nondistended], [nontender], [No rigidity or guarding] EXTREMITIES: Able to abduct and extend at the hi
[2023-09-18] MEDS: ACETAMINOPHEN 500 MG TABLET 1000 MG PO (16:39)
[2023-09-18] MEDS: LIDOCAINE 5% PATCH 1 PATCH TRANSDERM (16:39)
[2023-09-18] MEDS: KETOROLAC 30 MG/ML VIAL (*BKC) 15 MG IM (16:40)
[2023-09-18] MEDS: methocarbamoL 750 MG TABLET PO (16:40)
[2023-09-18] MEDS: dexAMETHasone SOD PHOS INJ 10 MG/ML 1 ML VIAL IM (17:05)
[2023-09-18 18:28] VITALS: BP 131/88; PULSE 74; RESP 18; TEMP 36.8; O2SAT 100
== END 2023-09-18 17:55 | disposition home or self-care (01) ==
PROVIDERS: Emergency Provider Student in an Organized Health Care Education/Training Program; PCP Internal Medicine
DX: M54.41 Lumbago with sciatica, right side (principal); I10 Essential (primary) hypertension; E11.51 Type 2 diabetes mellitus with diabetic peripheral angiopathy without gangrene; I73.9 Peripheral vascular disease, unspecified; E78.5 Hyperlipidemia, unspecified; E55.9 Vitamin D deficiency, unspecified; M10.9 Gout, unspecified; M17.0 Bilateral primary osteoarthritis of knee; Z86.010 Personal history of colon polyps; Z87.891 Personal history of nicotine dependence; Z79.84 Long term (current) use of oral hypoglycemic drugs; Z79.899 Other long term (current) drug therapy
CPT/HCPCS: 96372; 99284; A9270; J1100; J1885

== ENCOUNTER 2023-11-14 08:59 | Outpatient (CLI) | payer BC, SELFPAY ==
--- NOTE | ~2023-11-14 | XR_ITS ---
3 VIEWS LUMBAR SPINE Ordering provider: Jarod John MD History: . RIGHT SIDE PAIN, KNOT IN RT BUTTOCKS, SCIATIC PAIN . Comparison: None. FINDINGS: VERTEBRAL BODIES: No visible fracture or subluxation. Degenerative spine. DISK SPACES: Normal. SOFT TISSUES: Aortic calcifications. IMPRESSION: No acute osseous abnormality lumbar spine. . Reviewed, dictated and finalized at location A.
--- NOTE | ~2023-11-14 | XR_ITS ---
XR sacroiliac joints min 3V Ordering provider: Jarod John MD History: . RIGHT SIDE PAIN, KNOT IN RT BUTTOCKS, SCIATIC PAIN . Comparison: None. FINDINGS: BONES: No acute fracture or dislocation. Degenerative changes of the spine. JOINTS: The bilateral sacroiliac joint spaces appear well maintained. No bony fusion of the sacroilia c joints or bony erosions. SOFT TISSUES: Unremarkable. IMPRESSION: NO ACUTE OSSEOUS ABNORMALITY. NORMAL SACROILIAC JOINTS. Reviewed, dictated and finalized at location A.
--- NOTE | ~2023-11-14 | XR_ITS ---
AP view of the pelvis and AP and lateral views of the right hip Clinical history: Pain Findings: No acute fracture or dislocation is seen. Osseous alignment is anatomic. There is minimal d egenerative change of both hip joints. Soft tissues are unremarkable. Impression: Minimal degenerative change of both hip joints. Reviewed, dictated and finalized at location M. Impression: Minimal degenerative change of both hip joints.
== END 2023-11-14 09:00 | disposition home or self-care (01) ==
PROVIDERS: PCP Internal Medicine; Visit Provider Internal Medicine
DX: R79.89 Other specified abnormal findings of blood chemistry (principal); I10 Essential (primary) hypertension; M54.31 Sciatica, right side; E11.9 Type 2 diabetes mellitus without complications; E78.5 Hyperlipidemia, unspecified; Z12.5 Encounter for screening for malignant neoplasm of prostate; E34.9 Endocrine disorder, unspecified
CPT/HCPCS: 72100; 72202; 73502

== ENCOUNTER 2023-12-03 12:49 | Outpatient (CLI) | payer BC, SELFPAY ==
--- NOTE | ~2023-12-03 | MR_ITS ---
EXAMINATION: MR lumbar spine wo con DATE: 12/03/2023 14:17 INDICATION: Sacrococcygeal disorders, not elsewhere classified. Right-sided sciatica. TECHNIQUE: Magnetic resonance imaging (MRI) of the lumbar spine was performed without intravenous con trast. Sequences included sagittal T2-weighted FSE, sagittal T2-weighted FS FSE, sagittal T1-weighted FSE, and axial T2-weighted FSE. COMPARISON: Lumbar spine radiographs 11/14/2023 FINDINGS: Alignment is normal. Vertebral body heights are normal. S1 is a transitional segment. Verte bral body heights are normal. There is mildly decreased disc height at L3-L4, L4-L5, and L5-S1. The d istal spinal cord signal intensity is normal. The conus medullaris is at L1. The following disc level s are specifically discussed: L1-L2: The disc is bulging. There is mild bilateral facet joint osteoarthritis. There is no neural fo raminal stenosis. There is mild central canal stenosis. L2-L3: The disc is bulging. There is mild bilateral facet joint osteoarthritis. There is mild bilater al neural foraminal stenosis. There is mild central canal stenosis. L3-L4: The disc is bulging There is moderate right and mild left facet joint osteoarthritis. There is mild bilateral neural foraminal stenosis. There is mild central canal stenosis. L4-L5: The disc is bulging and has an annular fissure. There is moderate bilateral facet joint osteoa rthritis. There is moderate right and mild left neural foraminal stenosis. There is mild central suzette l stenosis. L5-S1: The disc is bulging and has an annular fissure. There is severe bilateral facet joint osteoart hritis.. There is an 8 mm synovial cyst of right facet joint in the epidural space. There is moderate right and mild left neural foraminal stenosis. There is mild central canal stenosis. There is severe stenosis of right lateral recess. IMPRESSION: 1. Severe lower lumbar spondylosis. Reviewed, dictated and finalized at location A.
--- NOTE | ~2023-12-03 | MR_ITS ---
EXAMINATION: MR sacroiliac jts wo con DATE: 12/03/2023 14:17 INDICATION: Sacrococcygeal disorders, elsewhere classified. Right-sided sciatica. TECHNIQUE: Magnetic resonance imaging (MRI) of the sacroiliac joints was performed without intravenou s contrast. COMPARISON: Pelvis and right hip radiographs 11/14/2023 FINDINGS: Alignment is normal. No fracture. Lumbar spondylosis is noted that is further described on the lumbar spine MRI. There is mild osteoarthritis of the sacroiliac joints. The prostate is mildly e nlarged. IMPRESSION: 1. Mild osteoarthritis of the sacroiliac joints. No evidence of inflammatory arthropathy. Reviewed, dictated and finalized at location A. IMPRESSION: 1. Mild osteoarthritis of the sacroiliac joints. No evidence of inflammatory ar thropathy.
== END 2023-12-03 12:50 | disposition home or self-care (01) ==
LOC: ANHIMG 12:50
PROVIDERS: PCP Internal Medicine; Visit Provider Internal Medicine
DX: M54.50 Low back pain, unspecified (principal); M25.551 Pain in right hip; G89.29 Other chronic pain; M53.3 Sacrococcygeal disorders, not elsewhere classified; M47.898 Other spondylosis, sacral and sacrococcygeal region; M43.06 Spondylolysis, lumbar region
CPT/HCPCS: 72148; 72195

== ENCOUNTER 2023-12-06 15:36 | Outpatient (CLI) | payer BC, SELFPAY ==
[2023-12-06 15:59] LABS: Basophils Absolute Auto 0.1 K/mm3 (0.0-0.1); Basophils Percent Auto 0.7 % (0.2-1.2); Eosinophils Absolute Auto 0.1 K/mm3 (0-0.3); Eosinophils Percent Auto 0.8 % (0-4.4); Hematocrit 41.1 % (42.0-52.0); Hemoglobin 14.6 g/dL (14.0-18.0); Immature Granulocyte Absolute 0.02 K/mm3 (0.00-0.031); Immature Granulocyte Percent A 0.3 % (0-0.5); Lymphocytes Absolute Auto 1.73 K/mm3 (0.9-3.2); Mean Corpuscular HGB Conc 35.5 g/dl (32-36); Mean Corpuscular Hemoglobin 33.6 pg (26-34); Mean Corpuscular Volume 94.5 fl (80-100); Mean Platelet Volume 10.1 fl (7.4-10.4); Monocytes Absolute Auto 0.7 K/mm3 (0.1-0.6); Monocytes Percent Auto 9.1 % (2.6-8.5); Neutrophils Absolute Auto 4.7 K/mm3 (1.3-6.7); Neutrophils Percent Auto 65.1 % (45.5-73.1); Platelet Count Result 203 k/mm3 (150-375); Red Blood Count 4.35 M/mm3 (4.6-6.20); Red Cell Distribution Width 13.8 % (11.5-14.5); White Blood Count 7.2 K/mm3 (4.5-10.0)
[2023-12-06 16:44] LABS: Thyroid Stimulating Hormone 0.523 uIU/mL (0.465-4.680)
[2023-12-06 16:49] LABS: Alanine Aminotransferase 58 U/L (6-50); Alkaline Phosphatase 73 U/L (38-126); Anion Gap 16 mmol/L (4-12); Aspartate Amino Transferase 104 U/L (17-59); Blood Urea Nitrogen 4 mg/dL (9-20); Calcium 9.4 mg/dL (8.4-10.2); Carbon Dioxide 24 mmol/L (22-30); Chloride 99 mmol/L (98-107); Cholesterol 131 mg/dL (0-200); Estimated Glomerular Filt Rate > 60; Glucose 109 mg/dL (65-110); HDL Direct 81 mg/dL; LDL Cholesterol Direct 46 mg/dL; Potassium 3.8 mmol/L (3.4-5.0); Prostate Specific Antigen 1.3 ng/mL (< OR = 4.0); Sodium 139 mmol/L (137-145); Triglycerides 72 mg/dL (<150)
[2023-12-06 16:58] LABS: Free T4 Free Thyroxine 0.98 ng/mL (0.78-2.19)
[2023-12-06 17:27] LABS: Hemoglobin A1C 5.7 % (<5.7)
[2023-12-10 18:28] LABS: Testosterone Total 354 ng/dL (250-1100)
== END 2023-12-06 15:37 | disposition home or self-care (01) ==
LOC: ANHLAB 15:38
PROVIDERS: PCP Internal Medicine; Visit Provider Internal Medicine
DX: E11.9 Type 2 diabetes mellitus without complications (principal); E55.9 Vitamin D deficiency, unspecified; E78.2 Mixed hyperlipidemia; I73.9 Peripheral vascular disease, unspecified; R79.89 Other specified abnormal findings of blood chemistry; R94.5 Abnormal results of liver function studies; Z00.00 Encounter for general adult medical examination without abnormal findings; Z12.5 Encounter for screening for malignant neoplasm of prostate; Z79.899 Other long term (current) drug therapy
CPT/HCPCS: 36415; 80053; 80061; 83036; 84153; 84403; 84439; 84443; 85025; G0103

== ENCOUNTER 2024-02-17 01:11 | Day surgery (SDC) | payer BC, SELFPAY ==
[2024-01-31 08:34] VITALS: BMI 27.6
--- NOTE | 2024-02-15 14:22 | PC.NURSE ---
Pt called states pt is requesting Golytely prep like he had before, script sent to pharmacy and instructions emailed to her.
[2024-02-17 10:57] VITALS: BP 144/104; PULSE 103; RESP 18; TEMP 35.8; O2SAT 96
[2024-02-17] MEDS: LACTATED RINGERS 1,000 ML 150 ML IV CONT (11:08)
--- NOTE | 2024-02-17 11:11 | P.HP_ITS ---
History of Present Illness History of Present Illness Consent: Risks, benefits, and alternatives have been discussed and questions answered. Patient agrees to proceed with procedure. Chief complaint: personal hx colon polyps Narrative: Jarad Nolasco is a 58 year old male with colon polyp 10 years ago Review of Systems Review of Systems: All systems reviewed & are unremarkable except as noted in HPI and below PMFSH Past Medical History Medical History Benign essential hypertension Bilateral foot pain BMI 27.0-27.9,adult BMI 28.0-28.9,adult BMI 29.0-29.9,adult BMI 30.0-30.9,adult BMI 32.0-32.9,adult Degenerative arthritis of knee, bilateral DJD (degenerative joint disease), multiple sites DM type 2 (diabetes mellitus, type 2) Elevated homocysteine Elevated LFTs Encounter for preventive health examination Encounter for routine adult health examination without abnormal findings Encounter for special screening examination for neoplasm of prostate Fatty liver Foreign body in left foot Gout Hearing loss Hx of colonic polyps Hyperlipidemia Hypogonadism in male IGT (impaired glucose tolerance) Left knee pain 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 Primary osteoarthritis of both knees PVD (peripheral vascular disease) Right hip pain SI (sacroiliac) pain Vitamin D deficiency Family History Family History Father Family history of diabetes mellitus in first degree relative Family history of heart disease in male family member before age 55 Grandparent Acute myocardial infarction Social History Social History Smoking status: Former smoker Smoking end date: 02/08/00 Alcohol intake: current Lack of Transportation: No Lack of Food: Never True Current Housing: I Have Housing Concerned About Future Housing: No Difficulty Paying Gas/Electric Bills: No Difficulty Paying for Meds: No Currently Unemployed: No Education: High School Diploma/GED Difficulty w/ Childcare or Family Care: No Living arrangements: with family Occupation/Education: occupation Gender identity (if verbalized by the patient): Male Meds Home Medications and Allergies Home Medications ?Medication ?Instructions ?Recorded ?Confirmed ?Type mecobalamin (vitamin B12) 1,000 1,000 mcg sublingual DAILY #90 tabs 06/26/19 02/17/24 Rx mcg disintegrating tablet,sublingual ezetimibe 10 mg tablet (Zetia) 10 mg PO DAILY 06/29/19 02/17/24 History omega-3 fatty acids 1,000 mg 1,000 mg PO BID 06/29/19 02/17/24 History capsule (Fish Oil Concentrate) lancets 33 gauge (OneTouch Delica #100 ea 12/19/19 12/09/23 Rx Plus Lancet) glucosam 750 mg-chondroi 100 1 tablet PO DAILY 02/13/20 02/17/24 History mg-hyalur 1.65 mg-CF borate 108 mg tablet ([facility]) blood sugar diagnostic (Accu-Chek #100 ea 07/16/20 12/09/23 Rx Nicol Plus test strips) cholecalciferol (vitamin D3) 25 25 mcg PO DAILY 09/18/21 02/17/24 History mcg (1,000 unit) capsule folic acid 1 mg tablet See Rx Instructions .Route 01/03/23 02/17/24 Rx .COMPLEX #90 tabs sildenafil 100 mg tablet (Viagra) 100 mg PO DAILY PRN sexual 05/11/23 02/17/24 Rx activity #24 tabs lidocaine 4 % topical patch 1 patch topical DAILY PRN pain #5 09/18/23 02/17/24 Rx ea naproxen 500 mg tablet (Naprosyn) 500 mg PO BID PRN pain #20 tabs 09/18/23 02/17/24 Rx metformin 1,000 mg tablet See Rx Instructions .Route 09/26/23 02/17/24 Rx .COMPLEX #180 tabs testosterone 4 pump topical DAILY #150 grams 10/18/23 02/17/24 Rx verapamil 240 mg tablet,extended See Rx Instructions .Route 10/31/23 02/17/24 Rx release .COMPLEX #180 tabs lisinopril 10 1 tablet PO DAILY #90 tabs 12/09/23 02/17/24 Rx mg-hydrochlorothiazide 12.5 mg tablet cyclobenzaprine 10 mg tablet See Rx Instructions .Route 12/19/23 02/17/24 Rx .COMPLEX #30 tabs allopurinol 300 mg tablet See Rx Instructions .Route 12/22/23 02/17/24 Rx .COMPLEX #180 tabs rosuvastatin 5 mg tablet 5 mg PO DAILY #90 tabs 01/19/24 02/17/24 Rx hydrocodone 5 mg-acetaminophen 325 1 tablet PO Q4-6H PRN pain #50 tabs 01/30/24 02/17/24 Rx mg tablet peg 3350-electrolytes 236 240 ml PO Q10M #4,000 mL 02/15/24 Rx gram-22.74 gram-6.74 gram-5.86 gram solution (Golytely) Allergies Allergy/AdvReac Type Severity Reaction Status Date / Time Penicillins Allergy Unknown Unknown Verified 02/17/24 10:51 Vital Signs Vital Signs - 24 hr 02/17/24 10:57 Temperature 96.5 F L Pulse Rate 103 H Respiratory Rate 18 Blood Pressure 144/104 H Pulse Oximetry 96 Oxygen Delivery Room Air Exam Const: General: comfortable and no acute distress HENMT: Face/Nose/Sinus: Normal nares present Eyes: General: appearance normal, both eyes and all related structures Neck: Neck: no JVD Resp: Auscultation: clear to auscultation bilaterally Cardio: Rate: regular rate Rhythm: regular rhythm GI: Inspection: non-distended GI Palp: Yes Soft to palpation Skin: General skin exam: normal color Neuro: Speech: normal speech Extrem: General: normal to inspection Psych: Mental Status: mental status grossly normal Assessment and Plan Assessment and plan (1) Hx of colonic polyps: Code(s): Z86.010 - Personal history of colon polyps Status: Acute Assessment and Plan: colonoscopy
--- NOTE | 2024-02-17 11:11 | WPDANESEPPF ---
Anes - Initial Pre Proc Eval Procedure: Operation Date: 02/17/24 12:00 Proposed Procedures p Screening Colonoscopy - Humphrey Orta MD Date/Time: 02/17/24 11:11 Surgeon: Humphrey Orta MD Pre Op Diagnosis: personal hx colon polyps Patient Data Age: 58 Gender: M Height: 1.8 m Weight: 89.1 kg Last Vital Signs Temp 96.5 F L 02/17/24 10:57 Pulse 103 H 02/17/24 10:57 Resp 18 02/17/24 10:57 BP 144/104 H 02/17/24 10:57 Pulse Ox 96 02/17/24 10:57 O2 Del Method Room Air 02/17/24 10:57 Allergies Allergy/AdvReac Type Severity Reaction Status Date / Time Penicillins Allergy Unknown Unknown Verified 02/17/24 10:51 Home Medications ?Medication ?Instructions ?Recorded ?Confirmed ?Type mecobalamin (vitamin B12) 1,000 1,000 mcg sublingual DAILY #90 tabs 06/26/19 02/17/24 Rx mcg disintegrating tablet,sublingual ezetimibe 10 mg tablet (Zetia) 10 mg PO DAILY 06/29/19 02/17/24 History omega-3 fatty acids 1,000 mg 1,000 mg PO BID 06/29/19 02/17/24 History capsule (Fish Oil Concentrate) lancets 33 gauge (OneTouch Delica #100 ea 12/19/19 12/09/23 Rx Plus Lancet) glucosam 750 mg-chondroi 100 1 tablet PO DAILY 02/13/20 02/17/24 History mg-hyalur 1.65 mg-CF borate 108 mg tablet ([facility]) blood sugar diagnostic (Accu-Chek #100 ea 07/16/20 12/09/23 Rx Nicol Plus test strips) cholecalciferol (vitamin D3) 25 25 mcg PO DAILY 09/18/21 02/17/24 History mcg (1,000 unit) capsule folic acid 1 mg tablet See Rx Instructions .Route 01/03/23 02/17/24 Rx .COMPLEX #90 tabs sildenafil 100 mg tablet (Viagra) 100 mg PO DAILY PRN sexual 05/11/23 02/17/24 Rx activity #24 tabs lidocaine 4 % topical patch 1 patch topical DAILY PRN pain #5 09/18/23 02/17/24 Rx ea naproxen 500 mg tablet (Naprosyn) 500 mg PO BID PRN pain #20 tabs 09/18/23 02/17/24 Rx metformin 1,000 mg tablet See Rx Instructions .Route 09/26/23 02/17/24 Rx .COMPLEX #180 tabs testosterone 4 pump topical DAILY #150 grams 10/18/23 02/17/24 Rx verapamil 240 mg tablet,extended See Rx Instructions .Route 10/31/23 02/17/24 Rx release .COMPLEX #180 tabs lisinopril 10 1 tablet PO DAILY #90 tabs 12/09/23 02/17/24 Rx mg-hydrochlorothiazide 12.5 mg tablet cyclobenzaprine 10 mg tablet See Rx Instructions .Route 12/19/23 02/17/24 Rx .COMPLEX #30 tabs allopurinol 300 mg tablet See Rx Instructions .Route 12/22/23 02/17/24 Rx .COMPLEX #180 tabs rosuvastatin 5 mg tablet 5 mg PO DAILY #90 tabs 01/19/24 02/17/24 Rx hydrocodone 5 mg-acetaminophen 325 1 tablet PO Q4-6H PRN pain #50 tabs 01/30/24 02/17/24 Rx mg tablet peg 3350-electrolytes 236 240 ml PO Q10M #4,000 mL 02/15/24 Rx gram-22.74 gram-6.74 gram-5.86 gram solution (Golytely) Patient hx anesthesia problems: none Family hx anesthesia problems: none Results Review: All pre-operative results and documents have been reviewed as part of the pre-operative evaluation. [facility] Past Medical History Medical History Benign essential hypertension Bilateral foot pain BMI 27.0-27.9,adult BMI 28.0-28.9,adult BMI 29.0-29.9,adult BMI 30.0-30.9,adult BMI 32.0-32.9,adult Degenerative arthritis of knee, bilateral DJD (degenerative joint disease), multiple sites DM type 2 (diabetes mellitus, type 2) Elevated homocysteine Elevated LFTs Encounter for preventive health examination Encounter for routine adult health examination without abnormal findings Encounter for special screening examination for neoplasm of prostate Fatty liver Foreign body in left foot Gout Hearing loss Hx of colonic polyps Hyperlipidemia Hypogonadism in male IGT (impaired glucose tolerance) Left knee pain 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 Primary osteoarthritis of both knees PVD (peripheral vascular disease) Right hip pain SI (sacroiliac) pain Vitamin D deficiency Family History Family History Father Family history of diabetes mellitus in first degree relative Family history of heart disease in male family member before age 55 Grandparent Acute myocardial infarction Social History Social History Smoking status: Former smoker Smoking end date: 02/08/00 Alcohol intake: current Lack of Transportation: No Lack of Food: Never True Current Housing: I Have Housing Concerned About Future Housing: No Difficulty Paying Gas/Electric Bills: No Difficulty Paying for Meds: No Currently Unemployed: No Education: High School Diploma/GED Difficulty w/ Childcare or Family Care: No Living arrangements: with family Occupation/Education: occupation Gender identity (if verbalized by the patient): Male Anes - Eval Final PreProcedure Day of Procedure 02/17/24 11:11 Patient weight: normal Heart: regular rate and rhythm Lungs: clear to auscultation Airway: Mallampati scale class II Neurological: alert and oriented Last oral intake: >/= 8 hours ASA classification: III Emergent: no Anesthetic plan: proceed Anesthesia type and monitoring: general GIVS and standard monitoring Results Review: All pre-operative results and documents have been reviewed as part of the pre-operative evaluation. Informed Consent: The patient's anesthetic plan and its attendant risks and benefits were discussed with the patient/family/POA. Questions were solicited and answers provided to the satisfaction of the patient/family/POA.
[2024-02-17 11:14] LABS: Glucose Point of Care 115 mg/dl (65-105)
[2024-02-17 11:28] VITALS: BP 117/80; PULSE 71; RESP 21; O2SAT 92
[2024-02-17 11:38] VITALS: BP 120/76; PULSE 80; RESP 23; O2SAT 95
[2024-02-17 11:48] VITALS: BP 127/84; PULSE 69; RESP 14; O2SAT 95
== END 2024-02-17 11:49 | disposition home or self-care (01) ==
PROVIDERS: PCP Internal Medicine; Visit Provider Internal Medicine Gastroenterology
PROC: 0DJD8ZZ Inspection of Lower Intestinal Tract, Via Natural or Artificial Opening Endoscopic (ICD-10-PCS; CPT 45378; principal; 2024-02-17 12:00)
DX: Z12.11 Encounter for screening for malignant neoplasm of colon (principal); D12.2 Benign neoplasm of ascending colon; K63.5 Polyp of colon; K64.8 Other hemorrhoids; K57.30 Diverticulosis of large intestine without perforation or abscess without bleeding; E55.9 Vitamin D deficiency, unspecified; I10 Essential (primary) hypertension; E29.1 Testicular hypofunction; M17.0 Bilateral primary osteoarthritis of knee; E11.9 Type 2 diabetes mellitus without complications; I73.9 Peripheral vascular disease, unspecified; Z79.1 Long term (current) use of non-steroidal anti-inflammatories (NSAID); Z79.84 Long term (current) use of oral hypoglycemic drugs; Z79.891 Long term (current) use of opiate analgesic; Z79.899 Other long term (current) drug therapy; Z87.891 Personal history of nicotine dependence; Z82.49 Family history of ischemic heart disease and other diseases of the circulatory system
CPT/HCPCS: 45385; 82948; 88305; J2704; J7120

== ENCOUNTER 2024-03-14 15:59 | Outpatient (CLI) | payer BC, SELFPAY ==
[2024-03-14 16:26] LABS: Basophils Percent Auto 0.6 % (0.2-1.2); Eosinophils Absolute Auto 0.2 K/mm3 (0-0.3); Eosinophils Percent Auto 2.3 % (0-4.4); Hematocrit 37.5 % (42.0-52.0); Hemoglobin 13.3 g/dL (14.0-18.0); Immature Granulocyte Absolute 0.03 K/mm3 (0.00-0.031); Immature Granulocyte Percent A 0.4 % (0-0.5); Lymphocytes Absolute Auto 1.53 K/mm3 (0.9-3.2); Lymphocytes Percent Auto 22.1 % (18.3-44.2); Mean Corpuscular HGB Conc 35.5 g/dl (32-36); Mean Corpuscular Hemoglobin 34.7 pg (26-34); Mean Corpuscular Volume 97.9 fl (80-100); Mean Platelet Volume 9.4 fl (7.4-10.4); Monocytes Absolute Auto 0.6 K/mm3 (0.1-0.6); Monocytes Percent Auto 9.1 % (2.6-8.5); Neutrophils Absolute Auto 4.5 K/mm3 (1.3-6.7); Neutrophils Percent Auto 65.5 % (45.5-73.1); Platelet Count Result 249 k/mm3 (150-375); Red Blood Count 3.83 M/mm3 (4.6-6.20); Red Cell Distribution Width 12.7 % (11.5-14.5); White Blood Count 6.9 K/mm3 (4.5-10.0)
[2024-03-14 16:39] LABS: Alanine Aminotransferase 54 U/L (6-50); Albumin Level 4.7 g/dL (3.5-5.1); Alkaline Phosphatase 67 U/L (38-126); Anion Gap 19 mmol/L (4-12); Aspartate Amino Transferase 108 U/L (17-59); Bilirubin,Total 0.7 mg/dL (0.2-1.3); Calcium 9.1 mg/dL (8.4-10.2); Carbon Dioxide 24 mmol/L (22-30); Chloride 90 mmol/L (98-107); Cholesterol 111 mg/dL (0-200); Estimated Glomerular Filt Rate > 60; Glucose 93 mg/dL (65-110); HDL Direct 58 mg/dL; Potassium 3.5 mmol/L (3.4-5.0); Sodium 133 mmol/L (137-145); Triglycerides 72 mg/dL (<150)
[2024-03-14 16:53] LABS: LDL Cholesterol Direct 43 mg/dL
[2024-03-14 17:06] LABS: Blood Urea Nitrogen < 2 mg/dL (9-20)
[2024-03-14 17:16] LABS: Prostate Specific Antigen 1.2 ng/mL (< OR = 4.0)
[2024-03-14 17:26] LABS: Hemoglobin A1C 5.4 % (<5.7)
== END 2024-03-14 16:00 | disposition home or self-care (01) ==
LOC: ANHLAB 16:01
PROVIDERS: PCP Internal Medicine; Visit Provider Internal Medicine
DX: E78.5 Hyperlipidemia, unspecified (principal); E11.9 Type 2 diabetes mellitus without complications; I10 Essential (primary) hypertension; E34.9 Endocrine disorder, unspecified; R79.89 Other specified abnormal findings of blood chemistry; Z12.5 Encounter for screening for malignant neoplasm of prostate
CPT/HCPCS: 36415; 80053; 80061; 83036; 84153; 84403; 84439; 84443; 85025

== ENCOUNTER 2024-06-08 14:47 | Outpatient (CLI) | payer BC, SELFPAY ==
[2024-06-08 15:21] LABS: Iron 88 ug/dL (49-181)
[2024-06-08 15:23] LABS: Alanine Aminotransferase 52 U/L (6-50); Albumin Level 4.7 g/dL (3.5-5.1); Alkaline Phosphatase 70 U/L (38-126); Aspartate Amino Transferase 127 U/L (17-59); Bilirubin,Total 0.8 mg/dL (0.2-1.3); Lipase 157 U/L (23-300)
[2024-06-08 15:31] LABS: Percent Iron Saturation 19 % (20-50)
[2024-06-09 17:54] LABS: GGT 265 U/L (3-70)
[2024-06-10 02:37] LABS: Ceruloplasmin 28 mg/dL (14-30)
[2024-06-11 08:43] LABS: Alpha Fetoprotein Tumor Marker 3.7 ng/mL (<6.1)
[2024-06-12 11:53] LABS: Actin Antibody (IgG) <20 U (<20)
[2024-06-13 19:53] LABS: Mitochondrial (M2) Ab (IgG) <20.0 U
== END 2024-06-08 14:48 | disposition home or self-care (01) ==
LOC: ANHLAB 14:48
PROVIDERS: PCP Internal Medicine; Visit Provider Nurse Practitioner Family
DX: K76.0 Fatty (change of) liver, not elsewhere classified (principal); R94.5 Abnormal results of liver function studies
CPT/HCPCS: 36415; 80076; 81596; 82104; 82105; 82390; 82728; 82977; 83520; 83540; 83550; 83690; 86038; 86039; 86364

== ENCOUNTER 2024-06-29 08:31 | Outpatient (CLI) | payer BC, SELFPAY ==
--- NOTE | ~2024-06-29 | XR_ITS ---
EXAMINATION: XR chest 2V 06/29/2024 09:22 INDICATION: Cough PROCEDURE: 2 view chest COMPARISON: No prior studies for comparison. FINDINGS: The lungs are clear. The cardiomediastinal silhouette is within normal limits. There are no pleural effusions. There is no pneumothorax suspected. IMPRESSION: 1: NO ACUTE CARDIOPULMONARY DISEASE. Reviewed, dictated and finalized at location []
[2024-06-29 09:12] LABS: Basophils Absolute Auto 0.1 K/mm3 (0.0-0.1); Basophils Percent Auto 0.6 % (0.2-1.2); Eosinophils Absolute Auto 0.2 K/mm3 (0-0.3); Eosinophils Percent Auto 2.4 % (0-4.4); Hematocrit 37.5 % (42.0-52.0); Hemoglobin 12.8 g/dL (14.0-18.0); Immature Granulocyte Absolute 0.15 K/mm3 (0.00-0.031); Immature Granulocyte Percent A 1.5 % (0-0.5); Lymphocytes Absolute Auto 1.54 K/mm3 (0.9-3.2); Lymphocytes Percent Auto 15.9 % (18.3-44.2); Mean Corpuscular HGB Conc 34.1 g/dl (32-36); Mean Corpuscular Hemoglobin 33.2 pg (26-34); Mean Corpuscular Volume 97.2 fl (80-100); Mean Platelet Volume 9.5 fl (7.4-10.4); Monocytes Absolute Auto 0.9 K/mm3 (0.1-0.6); Monocytes Percent Auto 8.8 % (2.6-8.5); Neutrophils Absolute Auto 6.9 K/mm3 (1.3-6.7); Neutrophils Percent Auto 70.8 % (45.5-73.1); Platelet Count Result 273 k/mm3 (150-375); Red Blood Count 3.86 M/mm3 (4.6-6.20); Red Cell Distribution Width 13.3 % (11.5-14.5); White Blood Count 9.7 K/mm3 (4.5-10.0)
[2024-06-29 09:24] LABS: Alanine Aminotransferase 42 U/L (6-50); Albumin Level 4.4 g/dL (3.5-5.1); Alkaline Phosphatase 72 U/L (38-126); Anion Gap 10 mmol/L (4-12); Aspartate Amino Transferase 119 U/L (17-59); Bilirubin,Total 0.7 mg/dL (0.2-1.3); Blood Urea Nitrogen 5 mg/dL (9-20); Carbon Dioxide 25 mmol/L (22-30); Chloride 98 mmol/L (98-107); Cholesterol 96 mg/dL (0-200); Estimated Glomerular Filt Rate > 60; Glucose 97 mg/dL (65-110); HDL Direct 42 mg/dL; Potassium 3.8 mmol/L (3.4-5.0); Sodium 133 mmol/L (137-145); Triglycerides 71 mg/dL (<150)
[2024-06-29 09:35] LABS: LDL Cholesterol Direct 34 mg/dL
[2024-06-29 10:26] LABS: Hemoglobin A1C 5.6 % (<5.7)
== END 2024-06-29 08:32 | disposition home or self-care (01) ==
LOC: ANHLAB 08:33
PROVIDERS: PCP Internal Medicine; Visit Provider Internal Medicine
DX: R05.9 Cough, unspecified (principal); R53.83 Other fatigue; E78.2 Mixed hyperlipidemia; E11.9 Type 2 diabetes mellitus without complications; I10 Essential (primary) hypertension
CPT/HCPCS: 36415; 71046; 80053; 80061; 83036; 85025

== ENCOUNTER 2024-08-25 13:03 | Outpatient (CLI) | payer BC, SELFPAY ==
[2024-08-25 13:30] LABS: Hemoglobin A1C 5.7 % (<5.7)
[2024-08-25 13:42] LABS: Alanine Aminotransferase 48 U/L (6-50); Albumin Level 4.4 g/dL (3.5-5.1); Alkaline Phosphatase 71 U/L (38-126); Anion Gap 15 mmol/L (4-12); Aspartate Amino Transferase 96 U/L (17-59); Bilirubin,Total 0.7 mg/dL (0.2-1.3); Blood Urea Nitrogen 3 mg/dL (9-20); Calcium 9.1 mg/dL (8.4-10.2); Carbon Dioxide 25 mmol/L (22-30); Chloride 92 mmol/L (98-107); Cholesterol 106 mg/dL (0-200); Estimated Glomerular Filt Rate > 60; Glucose 100 mg/dL (65-110); HDL Direct 49 mg/dL; Potassium 3.4 mmol/L (3.4-5.0); Sodium 132 mmol/L (137-145); Total Protein 7.4 g/dL (6.3-8.2); Triglycerides 76 mg/dL (<150)
== END 2024-08-25 13:04 | disposition home or self-care (01) ==
LOC: ANHLAB 13:05
PROVIDERS: PCP Internal Medicine; Visit Provider Internal Medicine
DX: E78.2 Mixed hyperlipidemia (principal); E11.9 Type 2 diabetes mellitus without complications; I10 Essential (primary) hypertension
CPT/HCPCS: 36415; 80053; 80061; 83036

== ENCOUNTER 2024-12-28 12:42 | Outpatient (CLI) | payer BC, SELFPAY ==
--- OUTSIDE RECORDS SUMMARY | 2024-12-28 12:46 | XMS_ITS | Clinical Summary ---
Author Organization [facility] Address [facility] [place] [address] Care Team Providers Care Resource Teacher Name Role Phone Jarod Leonard MD Primary Care Provider Encounters Date Type Department Care Team Description 12/19/2024 Telephone [facility], [address] [address] Melony Sykes RN Follow Up Call (CT Heart Calcium Score) 12/14/2024 5:20 PM CDL DRIVER - 12/14/2024 11:59 PM CDL DRIVER Hospital Encounter [facility] [place] [address] Jarod Leonard MD Discharge Disposition: Home or Self Care (Routine Discharge) 12/14/2024 Travel 12/07/2024 Telephone [facility], [address] [address] Deanne Cam, NURIA Schedule Test (echo) from Last 3 Months Social History Tobacco Use Types Packs/Day Years Used Date Smoking Tobacco: Never Assessed Comments Unknown Sex and Gender Information Value Date Recorded Sex Assigned at Not on file Legal Sex Unknown 12/03/2024 3:14 PM CDT Gender Identity Not on file Sexual Orientation Not on file Plan of Treatment Health Maintenance Due Date Last Done Comments Cervical Cancer Screening Pap Smear (Age 30 to 64) Every 3 Years 1965 Colorectal Cancer Screening Colonoscopy (10 Years) 1965 Kidney Health Evaluation 1965 Hemoglobin A1C 1965 Lipid Panel 1965 Annual Physical 08/10/1966 Diabetes: Retinopathy Eye Exam 08/10/1981 Hepatitis C 08/10/1981 DTaP, Tdap and Td Vaccines (1 - Tdap) 08/10/1982 Cervical Cancer Screening Pap with HPV Testing (Age 30 to 64) Every 5 Years 08/10/1993 Cervical Cancer Screening with HPV 08/10/1993 Mammogram Screening 2003 Zoster Vaccines (1 of 2) 08/10/2013 RSV Immunization or 60+ Years (1 - 1-dose 75+ series) 08/10/2038 Pneumococcal Vaccine: 50+ Years Completed 03/21/2024 COVID-19 Vaccine Completed 10/12/2024, , 11/02/2022, Additional history exists Influenza Adult Completed 10/12/2024, 11/07, 11/01/2022, Additional history exists Hepatitis A Vaccines Aged Out No long er eligible based on patient's age to complete this topic Meningococcal B Vaccine Aged Out No l onger eligible based on patient's age to complete this topic Meningococcal Vaccine Aged Out No joshua ilana eligible based on patient's age to complete this topic RSV Immunizations Under 20 Months Aged Out No longer eligible based on patient's age to complete this topic Procedures Procedure Name Priority Date/Time Associated Diagnosis Comments CT HEART SCREEN CALCIUM SCORE PROMO Routine 12/14/2024 5:42 PM CDL DRIVER Abnormal finding of blood chemistry, unspecified Mixed hyperlipidemia Essential (primary) hypertension Type 2 diabetes mellitus without complications ([facility]) from Last 3 Months Results * CT HEART SCREEN CALCIUM SCORE PROMO (12/14/2024 5:42 PM CDL DRIVER) Anatomical Region Laterality Modality Chest Computed Tomogra phy 12/17/2024 4:48 AM CDL DRIVER Impressions 12/17/2024 4:50 AM CDL DRIVER IMPRESSION:===== 1. Total Score: 2752 Extensive plaque, high risk, high likelihood of significant stenosis (>50%). 2. No abnormal pulmonary nodules in the visualized lungs. No acute thoracic abnormalities in the visualized chest. Referred By: JAROD LEONARD Interpreted By: Phil Us MD, 12/17/2024 4:48 AM Narrative 12/17/2024 4:50 AM CDL DRIVER [address] [address] EXAMINATION: Multislice Helical CT Coronary Calcium Scoring EXAM DATE/TIME: 12/14/2024 5:29 PM REASON FOR EXAM: CAD screening COMPARISON: None TECHNIQUE: Multislice helical CT images of the proximal coronary arteries with a computer generated calcification score. Automated exposure control was utilized for dose reduction. Results: Left main: 248 LAD: 633 Circumflex: 1462 Right coronary: 409 Total Score: 2752. Comments: No abnormal pulmonary nodules or masses in the visualized lung lowry. The included central airways are patent. Calcified right hilar lymph nodes. No pericardial effusion. No mediastinal lymphadenopathy. Visualized portion of the aorta is normal caliber. No acute abnormalities in the included upper abdomen. Calcium score guidelines: Total Score* Calcium Plaque [place] *Risk *Probability of significant CAD 0 No Plaque Very Low Very unlikely 1-10 Minimal Plaque Low Unlikely 11-100 Mild Plaque Moderate Low likelihood of significant stenosis <50% 101-400 Moderate Plaque Moderately High Moderate likelihood of significant stenosis (>50%) Over 400 Extensive Plaque High High likelihood of significant stenosis (>50%) The amount of coronary artery calcification correlates with the severity of coronary atherosclerosis and the probability of future significant event. Calcification is not site specific for stenosis and does not identify non-calcified atherosclerotic plaque, but rather indicates the extent of atherosclerosis in the coronary arteries overall. The score may be used as an indicator for risk factor modification or additional cardiac testing. Significant change in calcium score over time may be indicative of subsequent disease development or useful as a benchmark to assess preventative programs. ===== Procedure Note Phil Us MD - 12/17/[address] [address] EXAMINATION: Multislice Helical CT Coronary Calcium Scoring EXAM DATE/TIME: 12/14/2024 5:29 PM REASON FOR EXAM: CAD screening COMPARISON: None TECHNIQUE: Multislice helical CT images of the proximal coronary arterieswith a computer generated calcification score. Automated exposure controlwas utilized for dose reduction. Results: Left main: 248 LAD: 633 Circumflex: 1462 Right coronary: 409 Total Score: 2752. Comments: No abnormal pulmonary nodules or masses in the visualized lungfields. The included central airways are patent. Calcified right hilarlymph nodes. No pericardial effusion. No mediastinal lymphadenopathy.Visualized portion of the aorta is normal caliber. No acute abnormalitiesin the included upper abdomen. Calcium score guidelines: Total Score* Calcium Plaque [place] *Risk *Probability ofsignificant CAD 0 No Plaque Very LowVery unlikely 1-10 Minimal Plaque LowUnlikely 11-100 Mild Plaque ModerateLow likelihood of significant stenosis <50% 101-400 Moderate Plaque Moderately HighModerate likelihood of significant stenosis (>50%) Over 400 Extensive Plaque HighHigh likelihood of significant stenosis (>50%) The amount of coronary artery calcification correlates with the severityof coronary atherosclerosis and the probability of future significantevent. Calcification is not site specific for stenosis and does not identify non- calcifiedatherosclerotic plaque, but rather indicates the extent of atherosclerosisin the coronary arteries overall. The score may be used as an indicator for risk factor modification oradditional cardiac testing. Significant change in calcium score over timemay be indicative of subsequent disease development or useful as a benchmark to assess preventativeprograms. ===== IMPRESSION:===== 1. Total Score: 2752 Extensive plaque, high risk, high likelihood ofsignificant stenosis (>50%). 2. No abnormal pulmonary nodules in the visualized lungs. No acutethoracic abnormalities in the visualized chest. Referred By: JAROD LEONARD Interpreted By: Phil Us MD, 12/17/2024 4:48 AM Jarod Leonard MD CT Final Result from Last 3 Months Insurance [facility] Care Teams Resource Teacher Relationship Specialty Start Date End Date Jarod Leonard MD [address] [place] [id number] PCP - General INTERNAL MEDICINE 12/05/24
--- NOTE | 2024-12-28 12:53 | ECHO_ITS ---
Patient Info Name: Jarad Nolasco Age: 59 years : 1965 Gender: Male Ht: 71 in Wt: 208 lbs BSA: 2.19 m2 HR: 60 bpm BP: 143 / 86 mmHg Heart Rhythm: Sinus Rhythm Technical Quality: Good Exam Date: 12/28/2024 12:55 PM Patient Status: O Admit Date: 12/28/2024 Exam Type: CA echo doppler color flow Complete two-dimensional, color flow and Doppler transthoracic echocardiogram is performed. Site Technician: Sharon Best Attending Provider: Jarod John MD Summary 1. Complete two-dimensional, color flow and Doppler transthoracic echocardiogram is performed. 2. Left ventricular chamber dimension is normal. 3. Left ventricular systolic function is normal, estimated at 60-65. 4. The left ventricular diastolic function is normal. 5. E/e' 6 is not elevated. 6. Left atrial chamber dimension is mildly enlarged. 7. There is mild aortic valve sclerosis. 8. There is trace aortic valve regurgitation. 9. There is mild tricuspid valve regurgitation. 10. No pulmonary hypertension, estimated pulmonary arterial systolic pressure is 29 mmHg. 11. Dilated inferior vena cava with >50% collapse upon inspiration consistent with elevated right atrial pressure, 10 mmHg. Left Ventricle E/e' 6 is not elevated. Left ventricular chamber dimension is normal. Left ventricular systolic function is normal, estimated at 60-65. The left ventricular diastolic function is normal. Right Ventricle Right ventricular chamber dimension is normal. Right ventricular systolic function is normal and with normal TAPSE 2.0 cm. Left Atria Left atrial chamber dimension is mildly enlarged. Right Atria Right atrial chamber dimension is normal. Aortic Valve The aortic valve is trileaflet. There is mild aortic valve sclerosis. There is no aortic valve stenosis. There is trace aortic valve regurgitation. Pulmonic Valve There is no pulmonic regurgitation. Mitral Valve There is no mitral valve stenosis. There is no mitral valve regurgitation. Tricuspid Valve There is mild tricuspid valve regurgitation. No pulmonary hypertension, estimated pulmonary arterial systolic pressure is 29 mmHg. Pericardium/Pleural There is no pericardial effusion. Inferior Vena Cava Dilated inferior vena cava with >50% collapse upon inspiration consistent with elevated right atrial pressure, 10 mmHg. Aorta The aortic root size at the sinus of Valsalva is normal. Left Ventricular Outflow Tract Name Value Normal LVOT 2D LVOT Diameter 2.0 cm LVOT Doppler LVOT Peak Velocity 129 cm/s LVOT Peak Gradient 7 mmHg LVOT Mean Gradient 3 mmHg LVOT VTI 25 cm LVOT VTI/AV VTI Ratio 0.7 LVOT Stroke Volume 78 ml LVOT CO 3.9 l/min LVOT CI 1.8 l/min/m2 Pulmonic Valve Name Value Normal RVOT Doppler RVOT Peak Velocity 86 cm/s RVOT Peak Gradient 3 mmHg PV Doppler PV Peak Velocity 115 cm/s PV Peak Gradient 5 mmHg Mitral Valve Name Value Normal MV Diastolic Function MV E Peak Velocity 70 cm/s MV A Peak Velocity 39 cm/s MV E/A 1.8 MV Decel Time (PW) 282 ms MV Annular TDI MV E/e' (Septal) 7.8 MV E/e' (Lateral) 5.6 MV E/e' (Average) 6.7 Tricuspid Valve Name Value Normal TV Regurgitation Doppler TR Peak Velocity 220 cm/s TR Peak Gradient 19 mmHg Estimated PAP/RSVP RA Pressure 10 mmHg <=5 PA Systolic Pressure 29 mmHg <36 RV Systolic Pressure 29 mmHg <36 TV Annular TDI TV Lateral Kelly s' Velocity 14.6 cm/s >=9.5 Aorta Name Value Normal Ascending Aorta Ao Root Diameter (MM) 3.4 cm Ao Root Diam Index (MM) 1.5 cm/m2 Aortic Valve Name Value Normal AV Doppler AV Peak Velocity 188 cm/s AV Peak Gradient 14 mmHg AV Mean Gradient 7 mmHg AV VTI 36 cm AV Area (Cont Eq VTI) 2.1 cm2 >=3.0 AV Area (Cont Eq Lester) 2.1 cm2 AV DI (Lester) 0.69 AV Regurgitation 2D LVOT Area 3.1 cm2 Ventricles Name Value Normal LV Dimensions 2D/MM IVS Diastolic Thickness (2D) 0.9 cm 0.6-1.0 LVID Diastole (2D) 5.5 cm 4.2-5.8 LVIW Diastolic Thickness (2D) 0.9 cm 0.6-1.0 LVID Systole (2D) 3.8 cm 2.5-4.0 LVOT Diameter 2.0 cm LV Mass (2D Cubed) 193.35 g 88.00-224.00 LV Mass Index (2D Cubed) 88 g/m2 49-115 Relative Wall Thickness (2D) 0.33 <=0.42 LV Fractional Shortening/Ejection Fraction 2D/MM LV Fractional Shortening (2D) 32 % 25-43 LV EF (2D Teichholz) 60 % LV Diastolic Volume (4C MOD) 108 ml LV EF (4C MOD) 77 % LV Diastolic Volume (2C MOD) 86 ml LV EF (2C MOD) 70 % LV Diastolic Volume (BP MOD) 97 ml 62-150 LV Diastolic Volume Index (BP MOD) 44 ml/m2 34-74 LV Systolic Volume (BP MOD) 26 ml 21-61 LV Systolic Volume Index (BP MOD) 12 ml/m2 11-31 LV EF (BP MOD) 74 % 52-72 LV Diastolic Length (4C) 8.3 cm LV Systolic Length (4C) 6.4 cm LV Stroke Volume (4C MOD) 83 ml Atria Name Value Normal LA Dimensions LA Dimension (MM) 5.1 cm 3.0-4.0 LA Volume (4C A-L) 79 ml LA Volume (BP A-L) 87 ml RA Dimensions RA Area (4C) 19.2 cm2 <=18.0 Report Signatures
== END 2024-12-28 12:43 | disposition home or self-care (01) ==
PROVIDERS: PCP Internal Medicine; Visit Provider Internal Medicine
DX: I10 Essential (primary) hypertension (principal); R94.31 Abnormal electrocardiogram [ECG] [EKG]; R01.1 Cardiac murmur, unspecified; I36.1 Nonrheumatic tricuspid (valve) insufficiency; I35.1 Nonrheumatic aortic (valve) insufficiency
CPT/HCPCS: 93306

== ENCOUNTER 2025-01-18 08:51 | Outpatient (CLI) | payer BC, SELFPAY ==
--- NOTE | ~2025-01-18 | US_ITS ---
US abdomen limited Indication: R94.5 - Abnormal results of liver function studies Comparison: None Technique: Mendoza-scale and color Doppler images were obtained. Findings: LIVER: Moderate increased echogenicity of the liver. . The liver measures 19 cm. GALLBLADDER/BILIARY: Unremarkable.No cholelithiais, wall thickening or pericholecystic fluid. No biliary dilatation. CBD 5.6 mm. Fletcher sign negative. PANCREAS: The pancreas limited by bowel gas. Right Kidney: Right kidney 12.3 x 6.8 x 5.8 cm. Impression: 1. Mild hepatic steatosis versus hepatocellular disease Reviewed, dictated and finalized at location [facility] [employer] [facility] [employer] Impression: 1. Mild hepatic steatosis versus hepatocellular disease
== END 2025-01-18 08:52 | disposition home or self-care (01) ==
PROVIDERS: PCP Internal Medicine; Visit Provider Nurse Practitioner Family
DX: R94.5 Abnormal results of liver function studies (principal); K74.60 Unspecified cirrhosis of liver; K76.0 Fatty (change of) liver, not elsewhere classified
CPT/HCPCS: 76705